=== PATIENT | female | born 1990 | race Caucasian/White ===

== ENCOUNTER 2016-11-01 14:49 | Inpatient (IN) | payer OTHER ==
[~2016-11-01] VITALS: Ht 157.5 cm; Wt 69.5 kg
[~2016-11-01 14:49] MED LIST: ACET500C5 PO; PREN1TAB12 PO
[2016-11-01 14:58] VITALS: Ht 157.5 cm; Wt 69.5 kg
[2016-11-01] MEDS ORDERED: OXYTOCIN 30 UNITS/LR 500 ML IV SCH (15:00)
[2016-11-01] MEDS ORDERED: CARBOPROST 250 MCG INJ IM PRN (15:00)
[2016-11-01] MEDS ORDERED: CEFAZOLIN 2 GM/50 ML (PMX) 50 ML IV SCH (15:00)
[2016-11-01] MEDS ORDERED: METHYLERGONOVINE 0.2 MG INJ IM PRN (15:00)
[2016-11-01] MEDS ORDERED: MISOPROSTOL 200 MCG TAB PR PRN (15:00)
[2016-11-01] MEDS ORDERED: OXYTOCIN 30 UNITS/LR 500 ML IV PRN (15:00)
[2016-11-01] MEDS: LACTATED RINGER'S 1,000 ML IV SCH ×3 (15:25→20:22)
[2016-11-01 15:37] LABS: BASOPHILS % 0.4 % (0.0-2.0); EOSINOPHILS % 0.2 % (0.0-7.0); HEMATOCRIT 39.5 % (37.0-47.0); HEMOGLOBIN 13.2 g/dl (12.0-16.0); LYMPHOCYTES # 1.3 10^3/ul (0.8-2.9); LYMPHOCYTES % 13.2 % (15.0-51.0); MEAN CORPUSCULAR HEMOGLOBIN 27.4 pg (29.0-33.0); MEAN CORPUSCULAR HGB CONC 33.4 g/dl (32.0-37.0); MEAN CORPUSCULAR VOLUME 82.1 fl (82.0-101.0); MEAN PLATELET VOLUME 8.2 fl (7.4-10.4); MONOCYTE # 0.6 10^3/ul (0.3-0.9); MONOCYTES % 5.8 % (0.0-11.0); NEUTROPHIL # 8.2 10^3/ul (1.6-7.5); NEUTROPHILS % 80.4 % (39.0-77.0); PLATELET COUNT 245 10^3/UL (140-440); RED BLOOD COUNT 4.82 10^6/ul (4.20-5.40); RED CELL DISTRIBUTION WIDTH 12.6 % (11.5-14.5); UNCORRECTED WBC 10.2 10^3/ul (4.8-10.8); WHITE BLOOD COUNT 10.2 10^3/ul (4.8-10.8)
[2016-11-01 15:42] LABS: INR 0.87; PROTIME 11.8 Sec (12.2-14.2); PT RATIO 0.9
[2016-11-01 15:43] LABS: PARTIAL THROMBOPLASTIN TIME 26.1 Sec (25.0-35.0)
[2016-11-01 15:55] LABS: CONDITION 1
[2016-11-01] MEDS ORDERED: morphine SULFATE/PF (10 MG/10 ML) INJ ONE (17:36)
[2016-11-01] MEDS ORDERED: FENTAnyl 50 MCG/ML VIAL ONE (17:37)
[2016-11-01 19:18] VITALS: BP 121/58; PULSE 86; RESP 18
[2016-11-01] MEDS ORDERED: CITRIC ACID/NA CITRATE 30 ML CUP ONE (19:29)
[2016-11-01] MEDS ORDERED: CITRIC ACID/NA CITRATE 30 ML CUP PO ONE (20:00)
--- NOTE | 2016-11-01 20:15 | PREOPHP ---
DATE OF ADMISSION: 11/01/2016 HISTORY OF PRESENT ILLNESS: A 25-year-old female 4, para 3, estimated delivery 11/05/2016, term was admitted for repeat section. PAST MEDICAL HISTORY: Unremarkable. PAST SURGICAL HISTORY: section x3. ALLERGIES: NO KNOWN ALLERGIES. FAMILY HISTORY: Noncontributory. PHYSICAL EXAMINATION: VITAL SIGNS: The patient is afebrile. Vital signs stable. HEAD, NECK, AND CHEST: Within normal limits. ABDOMEN: Soft, nontender, and gravid. EXTREMITIES: Within normal limits. NEUROLOGIC: Within normal limits. IMPRESSION: at term with previous section x3. PLAN: Delivery by repeat section. Risks, benefits, and alternatives of the procedure were explained to the patient. The patient said she understood and gave informed consent for the proced ure. Dictated By: NICOLAS WAGNER/AUTUMN Conf#: [id number] DID#: [id number]
[2016-11-01] MEDS ORDERED: EPHEDrine SULFATE 50 MG/5 ML SYG ONE (20:48)
[2016-11-01] MEDS ORDERED: OXYTOCIN 30 UNITS/LR 500 ML IV ONE (20:53)
[2016-11-01] MEDS ORDERED: ONDANSETRON 4 MG INJ ONE (21:01)
[2016-11-01] MEDS ORDERED: ONDANSETRON 4 MG INJ IV PRN (21:30)
[2016-11-01] MEDS ORDERED: NALOXONE (0.4 MG/ML) INJ IV PRN (21:30)
[2016-11-01] MEDS ORDERED: ZOLPIDEM 5 MG TAB PO PRN (21:30)
[2016-11-01] MEDS ORDERED: HYDROmorphONE 1 MG/ML SYG IV PRN ×2 (21:30)
[2016-11-01] MEDS ORDERED: DIPHENHYDRAMINE 50 MG INJ IV PRN (21:30)
--- NOTE | 2016-11-01 22:25 | OPR ---
DATE OF OPERATION: 11/01/2016 PREOPERATIVE DIAGNOSES: at term with previous section x3. POSTOPERATIVE DIAGNOSES: at term with previous section x3. OPERATION PERFORMED: Repeat low transverse section. SURGEON: Nicolas Smith MD ACID PATROLLER: Dr. Dalton ANESTHESIA: Spinal. ANESTHESIOLOGIST: Dr. Castrejon PROCEDURE: The patient was taken to the operating room and placed on the operating table. After successful spinal anesthesia was given, the patient was placed in supine position. The area was prepared and draped in the usual sterile fashion. Spinal anesthesia was tested and was satisfactory. Using a scalpel, Pfannenstiel incision was made about 2 fingerbreadths above the symphysis pubis. The incision was carried to the fascia. The fascia was incised and extended bilaterally with Bennett scissors. Two Kochers were used to separate the fascia from the muscle. The muscle was dissected down to peritoneum. The peritoneum was secured with 2 Kellys and incised with Metzenbaum scissors. Using a scalpel, a small transverse incision was made in the lower segment of the uterus. Upon entering the uterine cavity, bandage scissors were inserted to extend the incision bilaterally, curved up. Baby was delivered from cephalic presentation. After suctioning clear of amniotic fluid , the baby was handed off to the logger all round in attendance. Apgars were 9 and 9. The placenta was delivered without difficulty. The uterus was closed with #1 Monocryl continuous locked, after assuring hemostasis. Both ovaries and tubes were inspected and looked normal. The peritoneal cavity was irrigated with warm saline. The peritoneum was closed with 2-0 Vicryl continuous. The fascia was closed with #1 Vicryl continuous in 2 segments. The skin was closed with marcia. ESTIMATED BLOOD LOSS: 500 mL. COMPLICATIONS: None. COUNTS: Lap, instrument, and needle counts were correct x2. Dictated By: NICOLAS SMITH MD GD/NTS Conf#: [id number] DID#: [id number] MTDD
[2016-11-01] MEDS: KETOROLAC 30 MG INJ IV PRN (23:27)
[2016-11-02] VITALS (7 sets, daily range): BP systolic 93–166; BP diastolic 51–79; PULSE 69–105; RESP 16–20
[2016-11-02] MEDS ORDERED: LANOLIN 7 GM TUBE TOP PRN (01:00)
[2016-11-02] MEDS ORDERED: METHYLERGONOVINE 0.2 MG INJ IM PRN (01:00)
[2016-11-02] MEDS ORDERED: OXYTOCIN 30 UNITS/LR 500 ML IV PRN (01:00)
[2016-11-02] MEDS ORDERED: MISOPROSTOL 200 MCG TAB PR PRN (01:00)
[2016-11-02] MEDS ORDERED: CARBOPROST 250 MCG INJ IM PRN (01:00)
[2016-11-02] MEDS: OXYTOCIN 30 UNITS/LR 500 ML IV SCH ×2 (02:10→06:02)
[2016-11-02] MEDS: KETOROLAC 30 MG INJ IV PRN ×2 (06:03→17:25)
[2016-11-02] MEDS: LACTATED RINGER'S 1,000 ML IV SCH ×3 (06:29→16:24)
[2016-11-02 08:29] LABS: BASOPHILS % 0.2 % (0.0-2.0); EOSINOPHILS % 0.2 % (0.0-7.0); HEMATOCRIT 32.1 % (37.0-47.0); HEMOGLOBIN 10.7 g/dl (12.0-16.0); LYMPHOCYTES # 1.2 10^3/ul (0.8-2.9); LYMPHOCYTES % 15.5 % (15.0-51.0); MEAN CORPUSCULAR HEMOGLOBIN 27.7 pg (29.0-33.0); MEAN CORPUSCULAR HGB CONC 33.4 g/dl (32.0-37.0); MEAN PLATELET VOLUME 8.1 fl (7.4-10.4); MONOCYTE # 0.4 10^3/ul (0.3-0.9); MONOCYTES % 5.1 % (0.0-11.0); NEUTROPHIL # 6.3 10^3/ul (1.6-7.5); PLATELET COUNT 190 10^3/UL (140-440); RED BLOOD COUNT 3.87 10^6/ul (4.20-5.40); RED CELL DISTRIBUTION WIDTH 12.5 % (11.5-14.5)
--- NOTE | 2016-11-02 08:30 | QN ---
Documentation Comment No complaint. Afebrile VSS Abdomen soft POD #1 stable Ambulate Advance diet. NICOLAS GIBBONS MD Nov 02, 2016 08:30
[2016-11-02 08:36] LABS: CONDITION 1
[2016-11-02] MEDS: SENNA/DOCUSATE NA (8.6MG/50MG) TAB PO SCH ×2 (09:11→21:39)
[2016-11-02] MEDS ORDERED: INFLUENZA VIRUS VACCINE 0.5 ML (DISPENSING) IM* ONE (17:00)
[2016-11-02] MEDS ORDERED: OXYCODONE/ACETAMINOPHEN (5/325) TAB PO PRN (20:35)
[2016-11-02] MEDS: IBUPROFEN 800 MG TAB PO SCH (22:57)
[2016-11-03] MEDS: LACTATED RINGER'S 1,000 ML IV SCH (00:29)
[2016-11-03 04:15] VITALS: BP 103/51; PULSE 86; RESP 18
[2016-11-03] MEDS: OXYCODONE/ACETAMINOPHEN (5/325) TAB PO PRN ×3 (04:49→19:11)
[2016-11-03] MEDS: IBUPROFEN 800 MG TAB PO SCH ×3 (05:22→21:35)
[2016-11-03 08:00] VITALS: BP 120/62; PULSE 72; RESP 18
[2016-11-03] MEDS: SENNA/DOCUSATE NA (8.6MG/50MG) TAB PO SCH ×2 (09:35→20:53)
[2016-11-03 15:55] VITALS: BP 112/62; PULSE 82; RESP 18
[2016-11-03 19:30] VITALS: BP 103/56; PULSE 97; RESP 18
[2016-11-04 03:40] VITALS: BP 101/55; PULSE 85; RESP 19
--- NOTE | 2016-11-04 04:27 | DS ---
DATE OF ADMISSION: 11/01/2016 DATE OF DISCHARGE: 11/04/2016 ADMITTING DIAGNOSIS: at term with previous section. HISTORY: A 25-year-old female 4, para 3 at admission, para 4 at time of discharge, with ter m who was admitted for repeat section. HOSPITAL COURSE: On 11/01/2016, after obtaining informed consent, the patient underwent a repeat lo w transverse section. The patient's operation was uncomplicated. Postoperatively, the pat ient was given clear liquid diet which was advanced to regular diet which she tolerated well. The p atient discharged on postop day #3 after having had adequate bladder and bowel function. CONDITION ON DISCHARGE: Stable. DISCHARGE INSTRUCTIONS DIET: Regular. ACTIVITIES: Pelvic rest and no strenuous activities. MEDICATIONS: 1. Motrin as needed for pain. 2. Continue with vitamins and ferrous sulfate. FOLLOWUP: Follow up in clinic in 1 week. FINAL DIAGNOSES 1. Term delivered by section. 2. Previous section. 3. Mother with single liveborn. Dictated By: NICOLAS WAGNER/AUTUMN Conf#: [id number] DID#: [id number]
[2016-11-04] MEDS: IBUPROFEN 800 MG TAB PO SCH ×2 (05:37→14:28)
[2016-11-04 08:20] VITALS: BP 113/56; PULSE 84; RESP 18
[2016-11-04] MEDS ORDERED: DIPHTH/TET/ACEL PERTUSS (ADULT) 0.5 ML VIAL IM* ONE (09:00)
[2016-11-04] MEDS ORDERED: INFLUENZA VIRUS VACCINE 0.5 ML (DISPENSING) IM* ONE (09:00)
[2016-11-04] MEDS: OXYCODONE/ACETAMINOPHEN (5/325) TAB PO PRN (10:34)
[2016-11-04] MEDS: SENNA/DOCUSATE NA (8.6MG/50MG) TAB PO SCH (10:34)
== END 2016-11-04 16:44 | disposition home or self-care (01) | DRG 766 ==
LOC: L-D 14:49 → PP1 11-02 00:25
PROVIDERS: ADMIT Obstetrics & Gynecology; ATTEND Obstetrics & Gynecology
PROC: 10D00Z1 Extraction of Products of Conception, Low, Open Approach (ICD-10-PCS; principal; 2016-11-01 17:00)
PROC: 3E00X4Z Introduction of Serum, Toxoid and Vaccine into Skin and Mucous Membranes, External Approach (ICD-10-PCS; 2016-11-04)
DX: O34.211 Maternal care for low transverse scar from previous cesarean delivery (principal); Z23 Encounter for immunization; Z3A.39 39 weeks gestation of pregnancy; Z37.0 Single live birth
CPT/HCPCS: 85025; 85610; 85730; 86592; 86850; 86900; 86901; 86920; 87340; 90686; 90715; 94760; 99464; J0690; J1885; J2274; J2405; J2590; J3010; J7120